=== PATIENT | female | born 1990 | race Caucasian/White ===

== ENCOUNTER 2020-03-02 22:20 | Emergency (ER) | payer MEDICAID, OTHER ==
[2020-03-02] MEDS ORDERED: Sodium Chloride 0.9% 2.5 ML Syringe FLUSH PRN (22:47)
[2020-03-02] MEDS ORDERED: Sodium Chloride 0.9% 10 ML Syringe FLUSH PRN (22:47)
--- NOTE | 2020-03-02 22:53 | EDM.PDOC ---
ED HPI GENERAL MEDICAL PROBLEM - General Chief Complaint: COMPUTER CLERK Problem Stated Complaint: bleeding in Time Seen by Provider: 03/02/20 22:31 Source of Information: Reports: Patient History Limitations: Reports: No Limitations - History of Present Illness INITIAL COMMENTS - FREE TEXT/NARRATIVE: -year-old female G2, P1, LMP = 11/14/2019 presents with painless vaginal bleeding 2 hours prior to arrival. Associated with nausea, vomiting. Patient denies fever, chills, headache, chest pain, shortness of breath, abdominal pain, focal numbness or weakness. COMPUTER CLERK is Dr. Laura Long ROS: A 10-point review of systems, other than pertinent positives and negatives as stated per HPI, is otherwise negative Past medical history: No additional pertinent history Past Surgical history: No additional pertinent history Social history: No additional pertinent history Family history: No additional pertinent history PHYSICAL EXAM General: AOx4, GCS = 15, No distress HEENT: dry mucous membrane Neck: supple, no meningismus, no Kernig or Brudzinski Cardiac: S1S2 RRR Respiratory: CTAB, no crackles or rales, no wheezing Abdomen: Soft, nontender, no rebound or guarding, nondistended, no pulsatile mass. Back: nontender Musculoskeletal: NVI distally, no deformity Neuro: No focal deficits, CN 2 - 12 WNL. - Related Data Allergies Allergy/AdvReac Type Severity Reaction Status Date / Time paroxetine HCl [From Paxil] Allergy Hives Verified 03/02/20 22:33 Home Meds: Home Meds Albuterol Sulfate [Albuterol Sulfate Hfa] 1 - 2 puff INH ASDIRECTED PRN 03/02/20 [History] Past Medical History - Past Health History Medical/Surgical History: Denies Medical/Surgical History HEENT History: Reports: Impaired Vision Other HEENT History: headaches Cardiovascular History: Reports: Heart Murmur Respiratory History: Reports: Asthma, Sleep Apnea Gastrointestinal History: Reports: Cholelithiasis, Other (See Below) Other Gastrointestinal History: gastroenteritis, nausea, vomiting Genitourinary History: Reports: UTI, Recurrent COMPUTER CLERK History: Reports: Polycystic Ovaries Other COMPUTER CLERK History: c- section Musculoskeletal History: Reports: Other (See Below) Other Musculoskeletal History: joint pain Neurological History: Reports: Other (See Below) Other Neuro History: 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, words inverted Psychiatric History: Reports: Anxiety, Depression Endocrine/Metabolic History: Reports: Diabetes, Gestational, Obesity/BMI 30+ - Infectious Disease History Infectious Disease History: Reports: None - Past Surgical History HEENT Surgical History: Reports: Myringotomy w Tube(s), Oral Surgery, Tonsillectomy GI Surgical History: Reports: Cholecystectomy Female Surgical History: Reports: Section Musculoskeletal Surgical History: Reports: Arthroscopic Knee Social & Family History - Family History Cardiac: Reports: Hypertension Other Cardiac Family History: Mother and Maternal Grandma Respiratory: Reports: Asthma Other Respiratory Family Hisory: Brother, Maternal Grandma, Mother OBGYN: Reports: Musculoskeletal: Reports: Other (See Below) Other Musculoskeletal Family History: Lupus - Mother Neurological: Reports: Other (See Below) Other Neurological Family History: Stroke - Mother - Tobacco Use Tobacco Use Status *Q: Current Every Day Tobacco User Years of Tobacco use: 10 Packs/Tins Daily: 1 - Caffeine Use Caffeine Use: Reports: Coffee, Soda - Recreational Drug Use Recreational Drug Use: No - Living Situation & Occupation Living situation: Reports: Single, with Family (Daughter) Occupation: Unemployed ED ROS GENERAL - Review of Systems Review Of Systems: Comprehensive ROS is negative, except as noted in HPI. (see dictation) ED EXAM, RENAL/ - Physical Exam Exam: See Below (see dictation) Course - Vital Signs Last Recorded V/S: Last Vital Signs Temp Pulse 105 H 03/02/20 22:34 Resp 19 03/02/20 22:34 BP 143/82 H 03/02/20 22:34 Pulse Ox 98 03/02/20 22:34 - Orders/Labs/Meds Orders: Active Orders 24 hr Category Date Time Status Cardiac Monitoring [RC] . DIRECTED Care 03/02/20 22:47 Active Sodium Chloride 0.9% [Saline Flush] Med 03/02/20 22:47 Active 10 ml FLUSH ASDIRECTED PRN Sodium Chloride 0.9% [Saline Flush] Med 03/02/20 22:47 Active 2.5 ml FLUSH ASDIRECTED PRN Saline Lock Insert [OM.PC] Stat Oth 03/02/20 22:47 Ordered Medication Orders Sodium Chloride (Saline Flush) 10 ml FLUSH ASDIRECTED PRN PRN Reason: Keep Vein Open Last Admin: 03/02/20 23:49 Dose: 10 ml Documented by: PONCHO Sodium Chloride (Saline Flush) 2.5 ml FLUSH ASDIRECTED PRN PRN Reason: Keep Vein Open Last Admin: 03/02/20 23:49 Dose: 2.5 ml Documented by: PONCHO Labs: Laboratory Tests 03/02/20 03/02/20 03/02/20 Range/Units 23:15 23:48 23:48 WBC 11.47 H (4.0-11.0) K/uL RBC 5.06 (4.30-5.90) M/uL Hgb 14.3 (12.0-16.0) g/dL Hct 42.9 (36.0-46.0) % MCV 84.8 (80.0-98.0) fL MCH 28.3 (27.0-32.0) pg MCHC 33.3 (31.0-37.0) g/dL RDW Std Deviation 43.6 (28.0-62.0) fl RDW Coeff of Diane 14 (11.0-15.0) % Plt Count 273 (150-400) K/uL MPV 10.30 (7.40-12.00) fL Neut % (Auto) 68.0 (48.0-80.0) % Lymph % (Auto) 25.5 (16.0-40.0) % [place] % (Auto) 5.8 (0.0-15.0) % Eos % (Auto) 0.5 (0.0-7.0) % Baso % (Auto) 0.2 (0.0-1.5) % Neut # (Auto) 7.8 H (1.4-5.7) K/uL Lymph # (Auto) 2.9 H (0.6-2.4) K/uL [place] # (Auto) 0.7 (0.0-0.8) K/uL Eos # (Auto) 0.1 (0.0-0.7) K/uL Baso # (Auto) 0.0 (0.0-0.1) K/uL Nucleated RBC % 0.0 /100WBC Nucleated RBCs # 0 K/uL INR Sodium 137 (136-145) mmol/L Potassium 3.6 (3.5-5.1) mmol/L Chloride 105 (98-107) mmol/L Carbon Dioxide 24.9 (21.0-32.0) mmol/L BUN 5 L (7.0-18.0) mg/dL Creatinine 0.8 (0.6-1.0) mg/dL Est Cr Clr Drug Dosing 98.88 mL/min Estimated GFR (MDRD) > 60.0 ml/min Glucose 98 (74-106) mg/dL Calcium 8.9 (8.5-10.1) mg/dL Total Bilirubin 0.3 (0.2-1.0) mg/dL AST 18 (15-37) IU/L ALT 32 (14-63) IU/L Alkaline Phosphatase 51 (46-116) U/L Total Protein 7.0 (6.4-8.2) g/dL Albumin 3.3 L (3.4-5.0) g/dL Globulin 3.7 (2.6-4.0) g/dL Albumin/Globulin Ratio 0.9 (0.9-1.6) HCG, Quant 29735.0 mIU/mL Urine Color YELLOW Urine Appearance CLEAR Urine pH 6.0 (5.0-8.0) Ur Specific [place] >= 1.030 (1.001-1.035) Urine Protein NEGATIVE (NEGATIVE) mg/dL Urine Glucose (UA) NEGATIVE (NEGATIVE) mg/dL Urine Ketones NEGATIVE (NEGATIVE) mg/dL Urine Occult Blood NEGATIVE (NEGATIVE) Urine Nitrite NEGATIVE (NEGATIVE) Urine Bilirubin NEGATIVE (NEGATIVE) Urine Urobilinogen 1.0 (<2.0) EU/dL Ur Leukocyte Esterase NEGATIVE (NEGATIVE) Blood Type 03/02/20 03/02/20 Range/Units 23:48 23:48 WBC (4.0-11.0) K/uL RBC (4.30-5.90) M/uL Hgb (12.0-16.0) g/dL Hct (36.0-46.0) % MCV (80.0-98.0) fL MCH (27.0-32.0) pg MCHC (31.0-37.0) g/dL RDW Std Deviation (28.0-62.0) fl RDW Coeff of Diane (11.0-15.0) % Plt Count (150-400) K/uL MPV (7.40-12.00) fL Neut % (Auto) (48.0-80.0) % Lymph % (Auto) (16.0-40.0) % [place] % (Auto) (0.0-15.0) % Eos % (Auto) (0.0-7.0) % Baso % (Auto) (0.0-1.5) % Neut # (Auto) (1.4-5.7) K/uL Lymph # (Auto) (0.6-2.4) K/uL [place] # (Auto) (0.0-0.8) K/uL Eos # (Auto) (0.0-0.7) K/uL Baso # (Auto) (0.0-0.1) K/uL Nucleated RBC % /100WBC Nucleated RBCs # K/uL INR 0.98 Sodium (136-145) mmol/L Potassium (3.5-5.1) mmol/L Chloride (98-107) mmol/L Carbon Dioxide (21.0-32.0) mmol/L BUN (7.0-18.0) mg/dL Creatinine (0.6-1.0) mg/dL Est Cr Clr Drug Dosing mL/min Estimated GFR (MDRD) ml/min Glucose (74-106) mg/dL Calcium (8.5-10.1) mg/dL Total Bilirubin (0.2-1.0) mg/dL AST (15-37) IU/L ALT (14-63) IU/L Alkaline Phosphatase (46-116) U/L Total Protein (6.4-8.2) g/dL Albumin (3.4-5.0) g/dL Globulin (2.6-4.0) g/dL Albumin/Globulin Ratio (0.9-1.6) HCG, Quant mIU/mL Urine Color Urine Appearance Urine pH (5.0-8.0) Ur Specific [place] (1.001-1.035) Urine Protein (NEGATIVE) mg/dL Urine Glucose (UA) (NEGATIVE) mg/dL Urine Ketones (NEGATIVE) mg/dL Urine Occult Blood (NEGATIVE) Urine Nitrite (NEGATIVE) Urine Bilirubin (NEGATIVE) Urine Urobilinogen (<2.0) EU/dL Ur Leukocyte Esterase (NEGATIVE) Blood Type A POSITIVE Meds: Medications Generic Name Dose Route Start Last Admin Trade Name Freq PRN Reason Stop Dose Admin Sodium Chloride 10 ml 03/02/20 22:47 03/02/20 23:49 Saline Flush FLUSH 10 ml ASDIRECTED PRN Administration Keep Vein Open Sodium Chloride 2.5 ml 03/02/20 22:47 03/02/20 23:49 Saline Flush FLUSH 2.5 ml ASDIRECTED PRN Administration Keep Vein Open - Re-Assessments/Exams Free Text/Narrative Re-Assessment/Exam: 03/03/20 00:48 She is currently stable for discharge. I performed a repeat exam and did not appreciate new abnormal findings. Patient exhibits normal vital signs and has a normal gait on road test. I advised the patient to return to the ER for reevaluation if symptoms worsened, including fever, worsening pain, or any other worrisome symptoms. I instructed the patient to follow up with COMPUTER CLERK within 2- 3 days. MEDICAL DECISION MAKING: I reviewed the patients past medical records, lab and radiographic findings. I discussed the case with the patient. My differential diagnosis included: Threatened miscarriage. Patient is Rh+, no indication for RhoGam. Her hemoglobin is stable, she is not tachycardic, I do not suspect hemorrhagic shock. She has no pelvic pain, I do not suspect heterotopic . Departure - Departure Time of Disposition: 00:48 Disposition: Home, Self-Care 01 Condition: Good Clinical Impression: Threatened miscarriage - Discharge Information *PRESCRIPTION DRUG MONITORING PROGRAM REVIEWED*: Not Applicable *COPY OF PRESCRIPTION DRUG MONITORING REPORT IN PATIENT JENNY: Not Applicable Instructions: Threatened Miscarriage, Activity Restriction During Referrals: Karel Banda MD [Primary Care Provider] - Forms: ED Department Discharge Additional Instructions: The need for follow-up, as well as the timing and circumstances, are variable depending upon the specifics of your emergency department visit. If you don't have a primary care physician on staff, we will provide you with a referral. We always advise you to contact your personal physician following an emergency department visit to inform them of the circumstance of the visit and for follow-up with them and/or the need for any referrals to a consulting specialist. The emergency department will also refer you to a specialist when appropriate. This referral assures that you have the opportunity for follow-up care with a specialist. All of these measure are taken in an effort to provide you with optimal care, which includes your follow-up. Under all circumstances we always encourage you to contact your private physician who remains a resource for coordinating your care. When calling for follow-up care, please make the office aware that this follow-up is from your recent emergency room visit. If for any reason you are refused follow-up, please contact the [facility] Emergency Department at and asked to speak to the emergency department charge nurse. If you do not have a primary care doctor, please follow up with the clinics below within 3-5 days. [facility]PUTER CLERK clinics [address] [id number] Sepsis Event Note (ED) - Evaluation Sepsis Screening Result: No Definite Risk - Focused Exam Vital Signs: Vital Signs Pulse Resp BP Pulse Ox 03/02/20 22:34 105 H 19 143/82 H 98 - My Orders Last 24 Hours: My Active Orders 03/02/20 22:47 Cardiac Monitoring [RC] . DIRECTED Sodium Chloride 0.9% [Saline Flush] 10 ml FLUSH ASDIRECTED PRN Sodium Chloride 0.9% [Saline Flush] 2.5 ml FLUSH ASDIRECTED PRN Saline Lock Insert [OM.PC] Stat - Assessment/Plan Last 24 Hours: My Active Orders 03/02/20 22:47 Cardiac Monitoring [RC] . DIRECTED Sodium Chloride 0.9% [Saline Flush] 10 ml FLUSH ASDIRECTED PRN Sodium Chloride 0.9% [Saline Flush] 2.5 ml FLUSH ASDIRECTED PRN Saline Lock Insert [OM.PC] Stat
[2020-03-03 00:45] LABS: BLOOD UREA NITROGEN,BUN 5 mg/dL (7.0-18.0); CARBON DIOXIDE,CO2 24.9 mmol/L (21.0-32.0); CHLORIDE,CL 105 mmol/L (98-107); GLUCOSE RANDOM 98 mg/dL (74-106); POTASSIUM,K 3.6 mmol/L (3.5-5.1); SODIUM,NA 137 mmol/L (136-145)
--- NOTE | 2020-03-03 00:45 | US ---
INDICATION: Vaginal bleeding TECHNIQUE: Ultrasound OB pelvis transvaginal. Real time carter scale imaging of the pelvis was performed. COMPARISON: None FINDINGS: Gestational sac: Sonographic imaging demonstrates a single intrauterine gestation with a normal appearance. No evidence of a perigestational hemorrhage is seen. The amount of fluid within the sac appears appropriate for gestational age. Fetus: The embryo demonstrates a regular cardiac rate measuring 134 beats per minute. The embryo`s crown rump length measurement of 5.9 mm corresponds to a gestational age of 6 weeks, 3 days. There are no gross abnormalities noted within the embryo at this early state of development. The yolk sac is not visualized. Placenta: The placenta has not yet developed. Pelvis: The visualized myometrium appears normal. The ovaries are of normal size. A cystic lesion is seen in the right ovary measuring 1 cm which may represent a follicle. No significant ascites noted. IMPRESSION: 1. Single viable intrauterine with an estimated gestational age of 6 weeks, 3 days. A yolk sac is not visualized. Follow-up ultrasound may be helpful for confirming normal IUP. Dictated by Carlo Thompson MD @ 03/03/2020 12:44:20 AM Dictated by: Carlo Thompson MD @ 03/03/2020 00:44:36 (Electronically Signed)
[2020-03-03 01:15] VITALS: BP 130/82; PULSE 94
== END 2020-03-03 01:10 | disposition home or self-care (01) ==
LOC: MW.ED 22:20
DX: O20.0 Threatened abortion (principal); O99.512 Diseases of the respiratory system complicating pregnancy, second trimester; J45.909 Unspecified asthma, uncomplicated; O99.212 Obesity complicating pregnancy, second trimester; O99.332 Smoking (tobacco) complicating pregnancy, second trimester; F17.210 Nicotine dependence, cigarettes, uncomplicated; Z88.8 Allergy status to other drugs, medicaments and biological substances
CPT/HCPCS: 36415; 76801; 76801-26; 80053; 81003; 84702; 85025; 85610; 86900; 86901; 99282; 99284-25

== ENCOUNTER 2021-04-12 07:31 | Emergency (ER) | payer MEDICAID ==
[2021-04-12 08:03] VITALS: BP 138/85; PULSE 94
== END 2021-04-12 08:07 | disposition home or self-care (01) ==
LOC: MW.ED 07:31
DX: J06.9 Acute upper respiratory infection, unspecified (principal); E66.9 Obesity, unspecified; Z68.42 Body mass index [BMI] 45.0-49.9, adult; Z88.5 Allergy status to narcotic agent; Z20.822 Contact with and (suspected) exposure to COVID-19
CPT/HCPCS: 99283; U0002

== ENCOUNTER 2021-05-10 18:54 | Emergency (ER) | payer MEDICAID ==
[2021-05-10] MEDS ORDERED: Sodium Chloride 0.9% 1,000 ML IV ONE (19:39)
[2021-05-10] MEDS ORDERED: Ketorolac 30 MG/ML SDV IVPUSH ONE (19:39)
[2021-05-10] MEDS ORDERED: Sodium Chloride 0.9% 2.5 ML Syringe FLUSH PRN (19:39)
[2021-05-10] MEDS ORDERED: Ondansetron 4 MG/2 ML SDV IVPUSH ONE (19:39)
--- NOTE | 2021-05-10 19:40 | EDM.PDOC ---
ED HPI GENERAL MEDICAL PROBLEM - General Chief Complaint: General Stated Complaint: CONGESTION, FLU Time Seen by Provider: 05/10/21 19:26 Source of Information: Reports: Patient History Limitations: Reports: No Limitations - History of Present Illness INITIAL COMMENTS - FREE TEXT/NARRATIVE: HISTORY AND PHYSICAL: History of present illness: Patient is a 30-year-old female who presents to the emergency department after 2 days of coughing and nasal drainage. The patient states that she did have a headache yesterday and has had diarrhea for about 2 weeks intermittently. Antoinette nt states that approximately 3 weeks ago she was started on an antibiotic for an sinus infection. She completed the antibiotics and felt good for approximately 1 to 2 weeks and then 2 days ago started with the same symptoms. She has previously tested negative for COVID-19 and has not been vaccinated for COVID- 19. The patient states that when she eats she feels as if she has been punched in the stomach. She states she does not have any abdominal pain at this time. Patient denies any fever, chills, headache, change in vision, syncope or near syncope. Denies any chest pain, back pain, or shortness of breath. Denies any constipation or dysuria. Has not noted any blood in urine or stool. Review of systems: As per history of present illness and below otherwise all systems reviewed and negative. Past medical history: As per history of present illness and as reviewed below otherwise noncontributory. Surgical history: As per history of present illness and as reviewed below otherwise noncontributory. Social history: See social history for further information Family history: As per history of present illness and as reviewed below otherwise noncontributory. Physical exam: General: Well developed and well nourished. Alert and orientated x 3. Nontoxic in appearance and in no acute distress. Vital signs are stable and have been reviewed by me. Nursing notes were reviewed. HEENT: Atraumatic, normocephalic, pupils equal and reactive bilaterally, negative for conjunctival pallor or scleral icterus, mucous membranes moist, TMs normal bilaterally, throat clear, neck supple, nontender, trachea midline. No drooling or trismus noted. No meningeal signs. No hot potato voice noted. Lungs: Clear to auscultation bilaterally. No wheezes, rales, or rhonchi. Chest nontender. Normal work of breathing, no accessory muscles used. Heart: S1S2, regular rate and rhythm without overt murmur, gallops, or rubs. No JVD. No peripheral edema Abdomen: Soft, nondistended, nontender. Normoactive bowel sounds. Negative for masses or costovertebral tenderness. Skin: Intact, warm, dry. No lesions or rashes noted. Hematologic: No petechiae or purpra. Mucosa appropriate color and normal nail bed color and refill. Extremities: Atraumatic, moves all extremities per self without difficulty or deficits, negative for cords or calf pain. Neurovascular unremarkable. Neuro: Awake, alert, oriented. Cranial nerves II through XII unremarkable. Cerebellum unremarkable. Motor and sensory unremarkable throughout. Exam nonfocal. Psychiatric: Mood and affect are appropriate. Normal thought process. Answering questions appropriately. Notes: *This patient was seen and evaluated during the 2019 SARS-CoV-2 novel coronavirus pandemic period. Community viral transmission is ongoing at time of this encounter and the emergency department is operating under pandemic response procedures. As stated above the patient is a 30-year-old female who presents to the emergency department with complaints of sinus congestion and cough for the last 2 days. The patient had been ill approximately 3 weeks ago and had been put on an antibiotic for sinus infection. Today the patient now has some abdominal p ain only with eating. We will give the patient some Zofran and see how she tolerates of fluids and food. I will do an Covid/viral work-up for the patient. She is agreeable with this plan. The patient's COVID-19 swab is positive all other results are negative or within normal limits. The patient does qualify for monoclonal antibodies and as such I have set up the paperwork and have obtained the patient's consent after giving the patient the patient fax sheet. I have talked with the patient about today's findings, in addition to providing specific details for plan of care. Reassessment at the time of disposition demonstrates that the patient is in no acute distress. The patient is stable for discharge, counseling was provided and we discussed in great detail signs and symptoms that would prompt them to return to the Emergency Department. Medication, follow up and supportive care measures were reviewed and discussed. Voices understanding and is agreeable to plan of care. Denies any further questions or concerns at this time. Diagnostics: CBC, CMP, COVID-19/influenza swab Therapeutics: IV fluids, Toradol, Zofran Prescription: Monoclonal antibodies Impression: COVID-19 Plan: 1. Your COVID-19 screening is positive. That means you do have the coronavirus and you are considered contagious. Your vital signs and oxygen saturation are well enough that you were able to monitor your symptoms at home. Continue to monitor for trouble breathing, new confusion or inability to arouse, bluish lips or face or any of the other symptoms we discussed -if this occurs please return to the emergency room. 1a. You qualify for the monoclonal antibodies and I have completed the paperwork and send it to the infusion clinic. They will be calling you for an appointment. It is imperative that you answer your telephone. This needs to be completed before the 10 days of onset of your symptoms. I gave you the infusion fax sheet and received your permission. 2. Please self quarantine until cleared by [facility] Department. Inform any persons that you have been in contact with since you started becoming symptomatic that you have tested positive; they should be made aware and take the appropriate steps as needed. 3. You can take NyQuil during the evening to help get a restful night sleep. May alternate Tylenol and ibuprofen as needed for pain and fever management. 4. The [facility] department will be calling you and following up with you. The [place] COVID 19 Hotline phone number , They are open Friday - Friday 7am - 7pm. Follow up with your primary care provider for re-evaluation and re-testing after the 10 day quarantine and discuss when you should be seen. Definitive disposition and diagnosis as appropriate pending reevaluation and review of above. - Related Data Allergies Allergy/AdvReac Type Severity Reaction Status Date / Time paroxetine HCl [From Paxil] Allergy Hives Verified 05/10/21 19:10 tramadol AdvReac Nausea and Verified 05/10/21 19:10 Vomiting Home Meds: Home Meds . [No Known Home Meds] 04/12/21 [History] Past Medical History - Past Health History Medical/Surgical History: Denies Medical/Surgical History HEENT History: Reports: Impaired Vision Other HEENT History: headaches Cardiovascular History: Reports: Heart Murmur Other Cardiovascular History: History of murmur. No murmur heard on exam, patient stated the last time a healthcare provider heard a murmur was in 2016. 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 loss and forgetfulness Psychiatric History: Reports: Anxiety, Depression Endocrine/Metabolic History: Reports: Obesity/BMI 30+ - Infectious Disease History Infectious Disease History: Reports: Chicken Pox, Shingles - Past Surgical History HEENT Surgical History: Reports: Adenoidectomy, Myringotomy w Tube(s), Oral Surgery, Tonsillectomy Other HEENT Surgeries/Procedures: wisdom teeth, teeth extraction GI Surgical History: Reports: Cholecystectomy Female Surgical History: Reports: Section Endocrine Surgical History: Reports: None Musculoskeletal Surgical History: Reports: Arthroscopic Knee Other Musculoskeletal Surgeries/Procedures:: knee surgery Social & Family History - Family History Family Medical History: No Pertinent Family History Cardiac: Reports: Hypertension Other Cardiac Family History: Mother and Maternal Grandma Respiratory: Reports: Asthma Other Respiratory Family Hisory: Brother, Maternal Grandma, Mother OBGYN: Reports: Musculoskeletal: Reports: Other (See Below) Other Musculoskeletal Family History: Lupus - Mother Neurological: Reports: Other (See Below) Other Neurological Family History: Stroke - Mother - Caffeine Use Caffeine Use: Reports: Coffee, Energy Drinks - Recreational Drug Use Recreational Drug Use: No - Living Situation & Occupation Living situation: Reports: Single, with Family (Daughter) Occupation: Unemployed ED ROS GENERAL - Review of Systems Review Of Systems: Comprehensive ROS is negative, except as noted in HPI. ED EXAM, GENERAL - Physical Exam Exam: See Below (See Dictation) Course - Vital Signs Last Recorded V/S: Last Vital Signs Temp 96.9 F 05/10/21 19:11 Pulse 96 05/10/21 20:56 Resp 17 05/10/21 19:11 BP 154/94 H 05/10/21 20:56 Pulse Ox 100 05/10/21 20:56 - Orders/Labs/Meds Labs: Laboratory Tests 05/10/21 05/10/2105/10/21 Range/Units 19:17 19:50 19:50 WBC 4.36 (4.0-11.0) K/uL RBC 5.19 (4.30-5.90) M/uL Hgb 14.4 (12.0-16.0) g/dL Hct 42.9 (36.0-46.0) % MCV 82.7 (80.0-98.0) fL MCH 27.7 (27.0-32.0) pg MCHC 33.6 (31.0-37.0) g/dL RDW Std Deviation 42.9 (28.0-62.0) fl RDW Coeff of Diane 14 (11.0-15.0) % Plt Count 252 (150-400) K/uL MPV 10.50 (7.40-12.00) fL Neut % (Auto) 47.3 L (48.0-80.0) % Lymph % (Auto) 44.0 H (16.0-40.0) % Nash % (Auto) 7.8 (0.0-15.0) % Eos % (Auto) 0.7 (0.0-7.0) % Baso % (Auto) 0.2 (0.0-1.5) % Neut # (Auto) 2.1 (1.4-5.7) K/uL Lymph # (Auto) 1.9 (0.6-2.4) K/uL Nash # (Auto) 0.3 (0.0-0.8) K/uL Eos # (Auto) 0.0 (0.0-0.7) K/uL Baso # (Auto) 0.0 (0.0-0.1) K/uL Nucleated RBC % 0.0 /100WBC Nucleated RBCs # 0 K/uL Sodium 139 (136-145) mmol/L Potassium 4.8 (3.5-5.1) mmol/L Chloride 106 (98-107) mmol/L Carbon Dioxide 24.9 (21.0-32.0) mmol/L BUN 8 (7.0-18.0) mg/dL Creatinine 0.7 (0.6-1.0) mg/dL Est Cr Clr Drug Dosing 112.01 mL/min Estimated GFR (MDRD) > 60.0 ml/min Glucose 93 (74-106) mg/dL Calcium 8.9 (8.5-10.1) mg/dL Total Bilirubin 0.4 (0.2-1.0) mg/dL AST 47 H (15-37) IU/L ALT 30 (14-63) IU/L Alkaline Phosphatase 60 (46-116) U/L Total Protein 7.3 (6.4-8.2) g/dL Albumin 3.3 L (3.4-5.0) g/dL Globulin 4.0 (2.6-4.0) g/dL Albumin/Globulin Ratio 0.8 L (0.9-1.6) Influenza Type A RNA NEGATIVE (NEGATIVE) Influenza Type B RNA NEGATIVE (NEGATIVE) SARS-CoV-2 RNA (JEVON) POSITIVE H (NEGATIVE) Meds: Medications Discontinued Medications Generic Name Dose Route Start Last Admin Trade Name Freq PRN Reason Stop Dose Admin Sodium Chloride 1,000 mls @ 999 mls/hr 05/10/21 19:39 05/10/21 19:50 Normal Saline IV 05/10/21 20:39 999 mls/hr .BOLUS ONE Administration Ketorolac Tromethamine 30 mg 05/10/21 19:39 05/10/21 19:51 Ketorolac 30 Mg/Ml Sdv IVPUSH 05/10/21 19:40 30 mg ONETIME ONE Administration Ondansetron HCl 4 mg 05/10/21 19:39 05/10/21 19:51 Ondansetron 4 Mg/2 Ml Sdv IVPUSH 05/10/21 19:40 4 mg ONETIME ONE Administration Sodium Chloride 10 ml 05/10/21 19:39 05/10/21 19:53 Sodium Chloride 0.9% 10 Ml Syringe FLUSH 10 ml ASDIRECTED PRN Administration Keep Vein Open Sodium Chloride 2.5 ml 05/10/21 19:39 05/10/21 19:58 Sodium Chloride 0.9% 2.5 Ml Syringe FLUSH 2.5 ml ASDIRECTED PRN Administration Keep Vein Open Departure - Departure Time of Disposition: 20:59 Disposition: Home, Self-Care 01 Condition: Good Clinical Impression: COVID-19 - Discharge Information *PRESCRIPTION DRUG MONITORING PROGRAM REVIEWED*: Not Applicable *COPY OF PRESCRIPTION DRUG MONITORING REPORT IN PATIENT JENNY: Not Applicable Instructions: COVID-19: Quarantine vs. Isolation - [facility] (04/27/2020), Caring for Your Baby if You Have COVID-19 - [facility] (06/05/2020), COVID-19: What to Do If You Are Sick- [facility] (07/26/2020) Referrals: PCP,None [Primary Care Provider] - Forms: ED Department Discharge Additional Instructions: The following information is given to patients seen in the emergency department who are being discharged to home. This information is to outline your options for follow-up care. We provide all patients seen in our emergency department with a follow-up referral. The need for follow-up, as well as the timing and circumstances, are variable depending upon the specifics of your emergency department visit. If you don't have a primary care physician on staff, we will provide you with a referral. We always advise you to contact your personal physician following an emergency department visit to inform them of the circumstance of the visit and for follow-up with them and/or the need for any referrals to a consulting specialist. The emergency department will also refer you to a specialist when appropriate. This referral assures that you have the opportunity for follow-up care with a specialist. All of these measure are taken in an effort to provide you with optimal care, which includes your follow-up. Under all circumstances we always encourage you to contact your private physician who remains a resource for coordinating your care. When calling for follow-up care, please make the office aware that this follow-up is from your recent emergency room visit. If for any reason you are refused follow-up, please contact the [facility] Emergency Department at and asked to speak to the emergency department charge nurse. [facility] [address] [place] [id number] [id number] Plan: 1. Your COVID-19 screening is positive. That means you do have the coronavirus and you are considered contagious. Your vital signs and oxygen saturation are well enough that you were able to monitor your symptoms at home. Continue to monitor for trouble breathing, new confusion or inability to arouse, bluish lips or face or any of the other symptoms we discussed -if this occurs please return to the emergency room. 1a. You qualify for the monoclonal antibodies and I have completed the paperwork and send it to the infusion clinic. They will be calling you for an appointment. It is imperative that you answer your telephone. This needs to be completed before the 10 days of onset of your symptoms. I gave you the infusion fax sheet and received your permission. 2. Please self quarantine until cleared by [facility] Department. Inform any persons that you have been in contact with since you started becoming symptomatic that you have tested positive; they should be made aware and take the appropriate steps as needed. 3. You can take NyQuil during the evening to help get a restful night sleep. May alternate Tylenol and ibuprofen as needed for pain and fever management. 4. The [facility] department will be calling you and following up with you. The [place] [employer] 19 Hotline phone number , They are open Friday - Friday 7am - 7pm. Follow up with your primary care provider for re-evaluation and re-testing after the 10 day quarantine and discuss when you should be seen.
[2021-05-10] MEDS: Sodium Chloride 0.9% 10 ML Syringe FLUSH PRN ×2 (19:52→19:53)
[2021-05-10 20:05] LABS: CORONAVIRUS COVID-19 NAA POSITIVE (NEGATIVE); INFLUENZA A NAA NEGATIVE (NEGATIVE); INFLUENZA B NAA NEGATIVE (NEGATIVE)
[2021-05-10 20:24] LABS: BLOOD UREA NITROGEN,BUN 8 mg/dL (7.0-18.0); CARBON DIOXIDE,CO2 24.9 mmol/L (21.0-32.0); CHLORIDE,CL 106 mmol/L (98-107); GLUCOSE RANDOM 93 mg/dL (74-106); POTASSIUM,K 4.8 mmol/L (3.5-5.1); SODIUM,NA 139 mmol/L (136-145)
--- NOTE | 2021-05-10 20:29 | CR ---
INDICATION: Cough. TECHNIQUE: Chest 1 view. COMPARISON: None. FINDINGS: No focal consolidation, pleural effusion, or pneumothorax. Heart size within normal limits for portable technique. Normal pulmonary vascularity. The bones are unremarkable. IMPRESSION: No acute cardiopulmonary findings. Dictated by Holli Hughes MD @ 05/10/2021 8:28:16 PM (Electronically Signed)
[2021-05-10 20:57] VITALS: BP 154/94; PULSE 96
== END 2021-05-10 21:22 | disposition home or self-care (01) ==
LOC: MW.ED 18:54
DX: U07.1 COVID-19 (principal); E66.9 Obesity, unspecified; Z68.41 Body mass index [BMI] 40.0-44.9, adult; Z88.5 Allergy status to narcotic agent; Z88.8 Allergy status to other drugs, medicaments and biological substances; Z20.822 Contact with and (suspected) exposure to COVID-19
CPT/HCPCS: 0240U; 36415; 71045; 80053; 85025; 96374; 96375; 99283; J1885; J2405; J7030

== ENCOUNTER 2021-06-22 15:34 | Emergency (ER) | payer MEDICAID ==
[2021-06-22 16:29] VITALS: BP 136/92; PULSE 106
== END 2021-06-22 18:04 | disposition home or self-care (01) ==
LOC: MW.ED 15:34
DX: J06.9 Acute upper respiratory infection, unspecified (principal); E66.9 Obesity, unspecified; Z68.41 Body mass index [BMI] 40.0-44.9, adult; Z88.5 Allergy status to narcotic agent; Z88.8 Allergy status to other drugs, medicaments and biological substances; Z72.0 Tobacco use
CPT/HCPCS: 87804; 99283

== ENCOUNTER 2021-06-25 22:31 | Emergency (ER) | payer MEDICAID ==
[2021-06-26 00:17] LABS: CORONAVIRUS COVID-19 NAA NEGATIVE (NEGATIVE); INFLUENZA A NAA NEGATIVE (NEGATIVE); INFLUENZA B NAA NEGATIVE (NEGATIVE)
[2021-06-26] MEDS ORDERED: Azithromycin 250 MG Tab PO ONE (00:37)
[2021-06-26 00:58] VITALS: BP 146/92; PULSE 93
== END 2021-06-26 01:02 | disposition home or self-care (01) ==
LOC: MW.ED 22:31
DX: J06.9 Acute upper respiratory infection, unspecified (principal); E66.9 Obesity, unspecified; Z88.5 Allergy status to narcotic agent; Z68.41 Body mass index [BMI] 40.0-44.9, adult; Z72.0 Tobacco use; Z20.822 Contact with and (suspected) exposure to COVID-19
CPT/HCPCS: 0240U; 99283; A9270-GY